=== PATIENT | male | born 1990 | race Caucasian/White ===

== ENCOUNTER → 2024-10-09 09:41 | Outpatient (REF) | payer OTHER, SELFPAY | LOC: HWRAD 09:41 | PROVIDERS: ATTENDING PHYSICIAN Family Medicine | DX: R13.10 Dysphagia, unspecified (principal) | CPT/HCPCS: 76536 ==

== ENCOUNTER 2024-10-26 16:01 | Outpatient (RCR) | payer OTHER, SELFPAY | END 2024-10-26 23:59 | disposition home or self-care (01) | LOC: RPT 16:01 | PROVIDERS: ATTENDING PHYSICIAN Family Medicine | DX: M54.2 Cervicalgia (principal); M54.6 Pain in thoracic spine; Z73.6 Limitation of activities due to disability; R20.0 Anesthesia of skin | CPT/HCPCS: 97110; 97162 ==

== ENCOUNTER 2024-11-11 17:16 | Outpatient (RCR) | payer OTHER, SELFPAY | END 2024-11-11 23:59 | disposition home or self-care (01) | LOC: RPT 17:16 | PROVIDERS: ATTENDING PHYSICIAN Family Medicine | DX: M54.2 Cervicalgia (principal); M54.6 Pain in thoracic spine; Z73.6 Limitation of activities due to disability; R20.0 Anesthesia of skin | CPT/HCPCS: 97110 ==